=== PATIENT | male | born 1940 | race Two or more races ===

== ENCOUNTER 2019-01-17 18:51 | Inpatient (IN) | payer MEDICARE ==
[~2019-01-17] VITALS: Ht 162.6 cm; Wt 88.6 kg
[2019-01-17] MEDS ORDERED: DOCU-141 PO (19:01)
[2019-01-17] MEDS ORDERED: CYCL30DR EACHEYE (19:01)
[2019-01-17] MEDS ORDERED: BENA40TA67 PO (19:01)
[2019-01-17] MEDS ORDERED: ATOR20TA PO (19:01)
[2019-01-17] MEDS ORDERED: AMLO5TAB4 PO (19:01)
[2019-01-17] MEDS ORDERED: ACET-2154 PO (19:01)
[2019-01-17] MEDS ORDERED: CHOL100045 PO (19:01)
[2019-01-17] MEDS ORDERED: DEXT15DR6 EACHEYE (19:01)
[2019-01-17 19:28] LABS: BASOPHILS % (AUTO) 0.5 % (0.0-2.0); EOSINOPHILS # (AUTO) 0.1 K/uL (0.0-0.7); EOSINOPHILS % (AUTO) 0.7 % (0.0-7.0); HEMOGLOBIN 13.6 g/dL (12.5-16.3); LYMPHOCYTES # (AUTO) 1.5 K/uL (20.0-40.0); LYMPHOCYTES % (AUTO) 18.2 % (20.5-51.5); MEAN CORPUSCULAR HEMOGLOBIN 31.1 uug (23.8-33.4); MEAN CORPUSCULAR HGB CONC 34 g/dL (32.5-36.3); MEAN CORPUSCULAR VOLUME 91.6 fL (73.0-96.2); MONOCYTES # (AUTO) 0.6 K/uL (2.0-10.0); MONOCYTES % (AUTO) 7.1 % (0.0-11.0); NEUTROPHILS # (AUTO) 5.9 K/uL (1.8-8.9); NEUTROPHILS % (AUTO) 73.5 % (38.5-71.5); PLATELET COUNT (AUTO) 173 K/uL (152-348); RED BLOOD CELL COUNT(AUTO) 4.37 MIL/uL (4.06-5.63)
[2019-01-17 19:33] LABS: CARBON DIOXIDE 30 mmol/L (21-32); CHLORIDE 103 mmol/L (98-107); CREATININE 0.9 mg/dL (0.6-1.3); GLUCOSE 116 mg/dL (74-106); POTASSIUM 3.8 mmol/L (3.5-5.1); UREA NITROGEN, BLOOD 15 mg/dL (7-18)
[2019-01-17 19:38] LABS: ALANINE AMINOTRANSFERASE 14 U/L (16-63); ALKALINE PHOSPHATASE 88 U/L (50-136); ASPARTATE AMINOTRANSFERASE 11 U/L (15-37); BILIRUBIN,DIRECT 0.1 mg/dL (0.0-0.2); BILIRUBIN,TOTAL 0.3 mg/dL (0.2-1.0); TOTAL PROTEIN, SERUM 7.3 g/dL (6.4-8.2)
[2019-01-17 19:39] LABS: ACETAMINOPHEN < 2.0 ug/mL (10-30)
[2019-01-17 19:40] LABS: ETHANOL < 3 MG/DL (0-0)
--- NOTE | 2019-01-17 19:59 | NUR ---
ATTEMPTED TO CALL [facility] FOR [facility], NO ANSWER.
[2019-01-17 20:00] LABS: THYROID STIMULATING HORMONE 2.416 mIU/mL (0.358-3.740)
[2019-01-17 20:29] LABS: *BILIRUBIN,URIN NEGATIVE (NEGATIVE); *BLOOD, URINE NEGATIVE (NEGATIVE); *CLARITY,URINE CLEAR (CLEAR); *COLOR,URINE YELLOW (YELLOW); *KETONES,URINE NEGATIVE (NEGATIVE); *UROBILINOGEN,URINE 0.2 E.U./dl (NORMAL); LEUKOCYTE ESTERASE ,URINE NEGATIVE (NEGATIVE); NITRITE, URINE NEGATIVE (NEGATIVE); PH,URINE 5.5 (5.0-8.0); UGLUCOSE NEGATIVE (NEGATIVE)
[2019-01-17 20:40] LABS: *AMPHETAMINE, URINE NEGATIVE (NEGATIVE); *BARBITURATE, URINE NEGATIVE (NEGATIVE); *CANNABINOID, URINE NEGATIVE (NEGATIVE); *COCCAINE, URINE NEGATIVE (NEGATIVE); *OPIATE, URINE NEGATIVE (NEGATIVE); *PHENCYCLIDINE SCREEN,URINE NEGATIVE (NEGATIVE)
[2019-01-17] MEDS ORDERED: MAGNESIUM HYDROXIDE 30 ML LIQUID UDC PO PRN (20:45)
[2019-01-17] MEDS ORDERED: ACETAMINOPHEN 325 MG TABLET PO PRN (20:45)
[2019-01-17] MEDS ORDERED: ONDANSETRON 4 MG/2 ML VIAL IV PRN (20:45)
[2019-01-17] MEDS ORDERED: Z GUARD REMEDY PASTE 57 GM TUBE TOP PRN (20:45)
[2019-01-17] MEDS ORDERED: HYDROCODONE/APAP 5-325MG TABLET PO PRN (20:45)
--- NOTE | 2019-01-17 20:58 | NUR ---
Pt. admitted to M/S , under care of Dr. PRICE Belongs List completed. MRSA SWAB DONE.
[2019-01-17] MEDS ORDERED: BENAZEPRIL HCL 2.5 MG PO SCH (21:00)
[2019-01-17] MEDS: IV NS 1000 ML 1,000 ML IV PRN (21:56)
[2019-01-17] MEDS: ATORVASTATIN 20 MG TABLET PO SCH (22:00)
--- NOTE | 2019-01-17 22:00 | NUR ---
RECEIVED PT FROM ER VIA WHEELCHAIR. UNDER THE CARE OF DR. PRICE. DX: ACUTE ON CHRONIC ENCEPHALOPATHY. ADMISSION PROCESS AND CARE PLAN INITIATED. BELONGING LIST DONE. PT IN NO ACUTE DISTRESS. IV INTACT. FPC ASSESSMENT DONE. SAFETY AND COMFORT PROVIDED. WILL CONTINUE TO MONITOR.
[2019-01-17 22:24] VITALS: BP 155/76
[2019-01-18 04:42] VITALS: BP 150/72
[2019-01-18 07:17] LABS: CARBON DIOXIDE 25 mmol/L (21-32); CHLORIDE 107 mmol/L (98-107); CREATININE 0.8 mg/dL (0.6-1.3); GLUCOSE 98 mg/dL (74-106); MAGNESIUM 1.7 mg/dL (1.8-2.4); PHOSPHOROUS 3.2 mg/dL (2.5-4.9); POTASSIUM 3.8 mmol/L (3.5-5.1); UREA NITROGEN, BLOOD 12 mg/dL (7-18)
[2019-01-18 07:54] LABS: BASOPHILS % (AUTO) 0.3 % (0.0-2.0); EOSINOPHILS # (AUTO) 0.1 K/uL (0.0-0.7); EOSINOPHILS % (AUTO) 0.7 % (0.0-7.0); HEMATOCRIT 41.5 % (36.7-47.1); HEMOGLOBIN 13.8 g/dL (12.5-16.3); LYMPHOCYTES # (AUTO) 1.5 K/uL (20.0-40.0); LYMPHOCYTES % (AUTO) 21.3 % (20.5-51.5); MEAN CORPUSCULAR HEMOGLOBIN 30.6 uug (23.8-33.4); MEAN CORPUSCULAR HGB CONC 33 g/dL (32.5-36.3); MEAN CORPUSCULAR VOLUME 92.2 fL (73.0-96.2); MONOCYTES # (AUTO) 0.6 K/uL (2.0-10.0); MONOCYTES % (AUTO) 8.3 % (0.0-11.0); NEUTROPHILS # (AUTO) 4.9 K/uL (1.8-8.9); NEUTROPHILS % (AUTO) 69.4 % (38.5-71.5); PLATELET COUNT (AUTO) 180 K/uL (152-348); WHITE BLOOD COUNT (AUTO) 7.1 K/uL (3.6-10.2)
[2019-01-18 08:45] VITALS: BP 100/64
[2019-01-18] MEDS: DOCUSATE SODIUM 100 MG CAPSULE PO SCH ×2 (08:53→17:05)
[2019-01-18] MEDS: CHOLECALCIFEROL 1,000 UNIT TABLET PO SCH (08:53)
[2019-01-18] MEDS: AMLODIPINE 5 MG TABLET PO SCH (08:59)
--- NOTE | 2019-01-18 11:19 | NUR ---
PT SHOWS NO SIGNS OF ACUTE DISTRESS. IV INTACT. PRESCRIBED MEDICATION GIVEN AND PT TOLERATED IT WELL.SAFETY AND COMFORT PROVIDED. WILL ENDORSE ACCORDINGLY TO INCOMING NURSE FOR CONTINUITY OF CARE.
--- NOTE | 2019-01-18 11:30 | NUR ---
Received patient in Bed, awake and verbally responsive. No signs of distress noted. No SOB. No complain of Pain or discomfort. IVF infusing well no signs of distress noted. All needs attended and met. Will continue to monitor.
[2019-01-18 11:33] VITALS: BP 109/50
[2019-01-18] MEDS: MAGNESIUM SULFATE/D5W 100 ML IV SCH ×2 (14:55→15:51)
[2019-01-18 15:11] VITALS: BP 116/53
[2019-01-18] MEDS: POLYVINYL ALCOHOL OPHT DROPS 15 ML BOTTLE EACHEYE SCH (16:46)
--- NOTE | 2019-01-18 18:01 | NUR ---
Patient in Bed, awake and verbally responsive. No signs of distress noted. No SOB. No complain of Pain or discomfort. IVF infusing well no signs of distress noted. All needs attended and met. Manesium 2G given with Mg 1.7. All due medications given as ordered. kept Clean and comfortable. Will Endorse to Oncoming Nurse.
--- NOTE | 2019-01-18 19:30 | NUR ---
Received patient in bed awake, A&Ox2. No SOB noted. IV on R hand intact and patent w/ IVF infusing. No complaints of pain at this time. Cont on 1:1 sitter for safety. Safety measures observed. Call light in reach
[2019-01-18] MEDS: ATORVASTATIN 20 MG TABLET PO SCH (20:30)
[2019-01-18] MEDS: BENAZEPRIL HCL 5 MG TABLET PO SCH (20:34)
[2019-01-18] MEDS: IV NS 1000 ML 1,000 ML IV PRN (20:40)
[2019-01-19 04:00] VITALS: BP 135/62
[2019-01-19 06:32] LABS: CREATININE 0.8 mg/dL (0.6-1.3); MAGNESIUM 1.9 mg/dL (1.8-2.4); POTASSIUM 4.1 mmol/L (3.5-5.1)
--- NOTE | 2019-01-19 06:39 | NUR ---
Patient slept intermittently for 5 hours. No episode of agitation this shift. Cont on 1:1 sitter for safety. Will endorse accordingly
[2019-01-19 07:20] LABS: BASOPHILS % (AUTO) 0.2 % (0.0-2.0); EOSINOPHILS % (AUTO) 0.6 % (0.0-7.0); HEMATOCRIT 39.7 % (36.7-47.1); HEMOGLOBIN 13.5 g/dL (12.5-16.3); LYMPHOCYTES # (AUTO) 1.6 K/uL (20.0-40.0); LYMPHOCYTES % (AUTO) 19.6 % (20.5-51.5); MEAN CORPUSCULAR HEMOGLOBIN 31.1 uug (23.8-33.4); MEAN CORPUSCULAR HGB CONC 34 g/dL (32.5-36.3); MEAN CORPUSCULAR VOLUME 91.9 fL (73.0-96.2); MONOCYTES # (AUTO) 0.5 K/uL (2.0-10.0); MONOCYTES % (AUTO) 6.7 % (0.0-11.0); NEUTROPHILS % (AUTO) 72.9 % (38.5-71.5); PLATELET COUNT (AUTO) 167 K/uL (152-348); RED BLOOD CELL COUNT(AUTO) 4.32 MIL/uL (4.06-5.63); WHITE BLOOD COUNT (AUTO) 8.2 K/uL (3.6-10.2)
[2019-01-19] MEDS: DOCUSATE SODIUM 100 MG CAPSULE PO SCH ×2 (08:47→16:38)
[2019-01-19] MEDS: CHOLECALCIFEROL 1,000 UNIT TABLET PO SCH (08:47)
[2019-01-19] MEDS: POLYVINYL ALCOHOL OPHT DROPS 15 ML BOTTLE EACHEYE SCH ×3 (08:50→16:38)
[2019-01-19] MEDS: AMLODIPINE 5 MG TABLET PO SCH (08:52)
--- NOTE | 2019-01-19 11:04 | NUR ---
Discharge in for GPS, per Anne [facility] Sup patient is not medically cleared yet for transfer.
[2019-01-19 11:36] VITALS: BP 136/66
[2019-01-19] MEDS: IV NS 1000 ML 1,000 ML IV PRN ×2 (11:41→23:08)
[2019-01-19 15:00] VITALS: BP 134/69
--- NOTE | 2019-01-19 17:08 | NUR ---
Patient A&Ox2, no distress noted or complaints of pain. Continues on IV fluid hydration. Safety precautions in place, sitter at bedside for safety. End of shift chart check done, will endorse care to oncoming shift. Pending transfer to [facility]. saw patient today.
--- NOTE | 2019-01-19 19:30 | NUR ---
Received patient in bed asleep but arousable. No SOB noted. No complaints of pain at this time. IV on R hand intact and patent w/ IVF infusing. Cont on 1:1 sitter for safety. Safety measures observed. Call light in reach
[2019-01-19 20:00] VITALS: BP 137/74
[2019-01-19] MEDS: DIVALPROEX 250 MG TABLET.DR PO SCH (20:52)
[2019-01-19] MEDS: ATORVASTATIN 20 MG TABLET PO SCH (20:52)
[2019-01-19] MEDS: BENAZEPRIL HCL 5 MG TABLET PO SCH (20:52)
[2019-01-20 04:00] VITALS: BP 125/69
--- NOTE | 2019-01-20 06:21 | NUR ---
Patient slept for 6 hrs. No episode of agitation this shift. Patient noted compliant w/ med and nursing care. Cont on 1:1 sitter. All needs attended. For transfer to MHU this AM. Will endorse accordingly
[2019-01-20 07:47] VITALS: BP 127/76
[2019-01-20 08:08] VITALS: BP 127/76
[2019-01-20] MEDS: DIVALPROEX 250 MG TABLET.DR PO SCH (08:08)
[2019-01-20] MEDS: CHOLECALCIFEROL 1,000 UNIT TABLET PO SCH (08:08)
[2019-01-20] MEDS: DOCUSATE SODIUM 100 MG CAPSULE PO SCH (08:08)
[2019-01-20] MEDS: AMLODIPINE 5 MG TABLET PO SCH (08:08)
[2019-01-20] MEDS: POLYVINYL ALCOHOL OPHT DROPS 15 ML BOTTLE EACHEYE SCH (08:09)
--- NOTE | 2019-01-20 11:52 | NUR ---
Report Given to Jayce HAGAN, Notified Pt has status for DNR. Pt is in no acute distress> Valuables given to patient and signed.
== END 2019-01-20 11:45 | DRG 103 ==
LOC: ER 18:54 → MEDSURG3 21:12
PROVIDERS: ADMIT Internal Medicine; ATTEND Internal Medicine
DX: F07.81 Postconcussional syndrome (principal); F03.91 Unspecified dementia, unspecified severity, with behavioral disturbance; F39 Unspecified mood [affective] disorder; Z91.81 History of falling; Z91.83 Wandering in diseases classified elsewhere; Z79.899 Other long term (current) drug therapy; R22.0 Localized swelling, mass and lump, head; I25.10 Atherosclerotic heart disease of native coronary artery without angina pectoris; E78.5 Hyperlipidemia, unspecified; G31.9 Degenerative disease of nervous system, unspecified; I10 Essential (primary) hypertension; Z86.73 Personal history of transient ischemic attack (TIA), and cerebral infarction without residual deficits; F41.9 Anxiety disorder, unspecified; F10.10 Alcohol abuse, uncomplicated; Y90.0 Blood alcohol level of less than 20 mg/100 ml
CPT/HCPCS: 36415; 70030-TC; 70450; 71045; 80307; 83735; 84100; 84443; 85025; 85730; 87086; 93005; A4663; G0378; G0480; G0480-TC; J3475; J3490; J7030

== ENCOUNTER 2019-01-20 12:24 | Inpatient (IN) | payer MEDICARE ==
[~2019-01-20] VITALS: Ht 162.6 cm; Wt 87.5 kg
[~2019-01-20 12:24] MED LIST: ACET-2154 PO; AMLO5TAB4 PO; ATOR20TA PO; BENA40TA67 PO; CHOL100045 PO; CYCL30DR EACHEYE; DEXT15DR6 EACHEYE; DOCU-141 PO
--- NOTE | 2019-01-20 12:45 | NUR ---
patient from [facility].patient had been increase in nomadic behavior with frequent elopement and going to local store buying ETOH and coming back dunk. he has been wandered in to the street facility unable to manage him.Per [address] due to eloping form facility, wandering in the streets, andcoming back intoxicated from ETOH. Dr. Pereira who reports that patient has been altered, and decompensating over recent weeks. 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
[2019-01-20] MEDS ORDERED: MAGNESIUM HYDROXIDE 30 ML LIQUID UDC PO PRN (13:00)
[2019-01-20] MEDS ORDERED: MAG HYDROX/AL HYDROX/SIMETH 30 ML LIQUID UDC PO PRN (13:00)
[2019-01-20] MEDS ORDERED: ACETAMINOPHEN 325 MG TABLET PO PRN (13:00)
[2019-01-20] MEDS ORDERED: TEMAZEPAM 7.5 MG CAPSULE PO PRN (13:00)
[2019-01-20 15:30] VITALS: BP 116/64
[2019-01-20] MEDS: DIVALPROEX 250 MG TABLET.DR PO SCH (20:23)
[2019-01-20 20:43] VITALS: BP 122/71
[2019-01-21] MEDS: LORAZEPAM 0.5 MG TABLET PO PRN (00:03)
[2019-01-21 07:30] VITALS: BP 139/75
[2019-01-21] MEDS: DIVALPROEX 250 MG TABLET.DR PO SCH ×2 (08:01→20:14)
[2019-01-21 15:18] VITALS: BP 117/68
--- NOTE | 2019-01-21 16:29 | NUR ---
Initial Discharge Note: Patient is a 78 year old male who currently resides at [facility] [[address], [place] [address]; ]. Per Guillermina, Admissions at facility, patient will be able to return to facility upon discharge. Bro is not on bed hold but facility will be welcoming patient back. Per patient, he would like to be discharged back to facility as soon as possible. turn out worker will continue to meet with patient, and collaborate with patient and MD on a safe and proper discharge plan.
[2019-01-21 20:00] VITALS: BP 151/59
--- NOTE | 2019-01-21 20:48 | NUR ---
Patient was is compliant this evening. Will closely monitor.
[2019-01-22 07:30] VITALS: BP 168/74
[2019-01-22] MEDS: DIVALPROEX 250 MG TABLET.DR PO SCH ×2 (08:32→20:23)
[2019-01-22] MEDS: LORAZEPAM 0.5 MG TABLET PO PRN (08:33)
--- NOTE | 2019-01-22 11:36 | NUR ---
FIREARMS REPORT: Child Development Assistant completed and submitted a [employer] firearms report for [address] [employer] certification. A copy of report has been placed in patient chart.
[2019-01-22 15:05] VITALS: BP 117/58
[2019-01-22 20:17] VITALS: BP 137/75
[2019-01-22] MEDS: BENAZEPRIL HCL 5 MG TABLET PO SCH (20:23)
[2019-01-22] MEDS: ATORVASTATIN 20 MG TABLET PO SCH (20:24)
[2019-01-22] MEDS ORDERED: BENAZEPRIL HCL 2.5 MG PO SCH (21:00)
[2019-01-23 07:30] VITALS: BP 134/79
[2019-01-23] MEDS: CHOLECALCIFEROL 1,000 UNIT TABLET PO SCH (09:19)
[2019-01-23] MEDS: AMLODIPINE 5 MG TABLET PO SCH (09:20)
[2019-01-23] MEDS: DIVALPROEX 250 MG TABLET.DR PO SCH ×2 (09:20→20:51)
[2019-01-23] MEDS: DOCUSATE SODIUM 100 MG CAPSULE PO SCH ×2 (09:20→17:51)
--- NOTE | 2019-01-23 15:00 | NUR ---
Discharge Planning: Per core analyst request, Dr. Shaw, referral packet was faxed to [facility] [[address], [place] [address]; ] ATTN KELLY. Business Planner confirmed fax receipt with ADA.
[2019-01-23 15:54] VITALS: BP 114/66
[2019-01-23 20:12] VITALS: BP 109/49
[2019-01-23] MEDS: ATORVASTATIN 20 MG TABLET PO SCH (20:51)
[2019-01-23] MEDS: BENAZEPRIL HCL 5 MG TABLET PO SCH (20:52)
--- NOTE | 2019-01-24 06:14 | NUR ---
PT SLEPT 9.15 HOURS. PT IN NO ACUTE DISTRESS. PRESCRIBED MEDICATION GIVEN AND PT TOLERATED IT WELL. PT COMPLIANT WITH CARE. CAN MAKE HIS NEEDS KNOWN. PLEASANT WHEN APPROACHED. SAFETY AND COMFORT PROVIDED. ALL NEEDS ARE MET . WILL ENDORSE ACCORDINGLY TO INCOMING NURSE FOR CONTINUITY OF CARE.
[2019-01-24] MEDS: CHOLECALCIFEROL 1,000 UNIT TABLET PO SCH (08:30)
[2019-01-24] MEDS: AMLODIPINE 5 MG TABLET PO SCH (08:30)
[2019-01-24] MEDS: DIVALPROEX 250 MG TABLET.DR PO SCH ×2 (08:31→21:18)
[2019-01-24] MEDS: DOCUSATE SODIUM 100 MG CAPSULE PO SCH ×2 (08:31→17:00)
[2019-01-24 10:47] VITALS: BP 139/66
[2019-01-24 16:45] VITALS: BP 128/70
--- NOTE | 2019-01-24 20:20 | NUR ---
Patient received into care sleeping in bed, resting comfortably. Patient has no signs/symptoms of acute distress or discomfort noted or observed. All safety and fall precaution measures are in place. Will continue to monitor throughout shift.
[2019-01-24 20:28] VITALS: BP 122/68
[2019-01-24] MEDS: BENAZEPRIL HCL 5 MG TABLET PO SCH (21:17)
[2019-01-24] MEDS: ATORVASTATIN 20 MG TABLET PO SCH (21:18)
--- NOTE | 2019-01-25 07:04 | NUR ---
Patient slept 7.45 hr with no complaints of pain or discomfort all night. Patient was compliant with all aspects of care, including medication regimen. All nursing needs were addressed promptly. Safety and fall precaution measures remain in place.
[2019-01-25 07:57] VITALS: BP 129/52
--- NOTE | 2019-01-25 09:00 | NUR ---
Calm, compliant with taking medication
[2019-01-25] MEDS: DOCUSATE SODIUM 100 MG CAPSULE PO SCH ×2 (09:01→16:41)
[2019-01-25] MEDS: DIVALPROEX 250 MG TABLET.DR PO SCH ×3 (09:02→20:10)
[2019-01-25] MEDS: AMLODIPINE 5 MG TABLET PO SCH (09:02)
[2019-01-25] MEDS: CHOLECALCIFEROL 1,000 UNIT TABLET PO SCH (09:02)
--- NOTE | 2019-01-25 11:00 | NUR ---
Sleeping most of the time
--- NOTE | 2019-01-25 16:00 | NUR ---
At the activity room, pleasant,calm and compliant with taking medication
[2019-01-25 16:08] VITALS: BP 134/63
[2019-01-25] MEDS: ATORVASTATIN 20 MG TABLET PO SCH (20:10)
[2019-01-25] MEDS: BENAZEPRIL HCL 5 MG TABLET PO SCH (20:11)
[2019-01-25 21:01] VITALS: BP 123/74
--- NOTE | 2019-01-26 05:58 | NUR ---
Patient slept a total of 6.30 hours. Patient has been pleasant, calm and compliant with medications. Attended all needs. Ensured safety and comfort. No other untoward events noted.
[2019-01-26 07:30] VITALS: BP 134/68
[2019-01-26] MEDS: CHOLECALCIFEROL 1,000 UNIT TABLET PO SCH (08:14)
[2019-01-26] MEDS: DIVALPROEX 250 MG TABLET.DR PO SCH ×3 (08:14→20:35)
[2019-01-26] MEDS: DOCUSATE SODIUM 100 MG CAPSULE PO SCH ×2 (08:15→16:25)
[2019-01-26] MEDS: AMLODIPINE 5 MG TABLET PO SCH (08:15)
--- NOTE | 2019-01-26 10:00 | NUR ---
AWAKE ALERT AND VERBALLY RESPONSIVE FORGETFUL AT TIME ABLE TO MAKE SIMPLE NEEDS KNOWN COMPLIANT WITH MEDICATIONS AND CARE.NOT IN DISTRESS AT THIS TIME.
[2019-01-26 15:16] VITALS: BP 127/60
[2019-01-26] MEDS: ATORVASTATIN 20 MG TABLET PO SCH (20:34)
[2019-01-26 20:35] VITALS: BP 121/63
[2019-01-26] MEDS: BENAZEPRIL HCL 5 MG TABLET PO SCH (20:35)
[2019-01-26 21:00] VITALS: BP 111/64
[2019-01-27 07:30] VITALS: BP 123/54
[2019-01-27] MEDS: CHOLECALCIFEROL 1,000 UNIT TABLET PO SCH (08:26)
[2019-01-27] MEDS: DOCUSATE SODIUM 100 MG CAPSULE PO SCH ×2 (08:26→16:18)
[2019-01-27] MEDS: DIVALPROEX 250 MG TABLET.DR PO SCH ×3 (08:26→20:55)
[2019-01-27] MEDS: AMLODIPINE 5 MG TABLET PO SCH (08:27)
[2019-01-27 16:11] VITALS: BP 121/67
--- NOTE | 2019-01-27 19:00 | NUR ---
PATIENT IN BED, ALERT BUT FORGETFUL, PATIENT COOPERATIVE WITH MEDICATION AND CARE, CONT TO MONITOR.
[2019-01-27] MEDS: BENAZEPRIL HCL 5 MG TABLET PO SCH (20:56)
[2019-01-27 21:00] VITALS: BP 111/64
[2019-01-27] MEDS ORDERED: ATORVASTATIN 20 MG TABLET ONE (21:42)
[2019-01-27] MEDS: ATORVASTATIN 20 MG TABLET PO SCH (23:12)
[2019-01-28 07:30] VITALS: BP 109/59
[2019-01-28] MEDS: DOCUSATE SODIUM 100 MG CAPSULE PO SCH ×2 (08:29→16:09)
[2019-01-28] MEDS: DIVALPROEX 250 MG TABLET.DR PO SCH ×3 (08:29→20:24)
[2019-01-28] MEDS: CHOLECALCIFEROL 1,000 UNIT TABLET PO SCH (08:30)
[2019-01-28] MEDS: AMLODIPINE 5 MG TABLET PO SCH (08:30)
[2019-01-28 15:22] VITALS: BP 136/72
[2019-01-28 20:00] VITALS: BP 130/64
[2019-01-28] MEDS: BENAZEPRIL HCL 5 MG TABLET PO SCH (20:24)
[2019-01-28] MEDS: ATORVASTATIN 20 MG TABLET PO SCH (20:24)
[2019-01-29 07:30] VITALS: BP 129/75
[2019-01-29] MEDS: DOCUSATE SODIUM 100 MG CAPSULE PO SCH (08:37)
[2019-01-29] MEDS: DIVALPROEX 250 MG TABLET.DR PO SCH (08:37)
[2019-01-29] MEDS: CHOLECALCIFEROL 1,000 UNIT TABLET PO SCH (08:37)
[2019-01-29 08:38] VITALS: BP 129/73
[2019-01-29] MEDS: AMLODIPINE 5 MG TABLET PO SCH (08:38)
--- NOTE | 2019-01-29 09:52 | NUR ---
Discharge Note Patient will be discharged to [facility] [[address] [place] [address]; [phone]]. Spoke with Hetaher [Director Content Marketing] at the facility who states they are ready to accept the patient today and will be providing transportation for the patient at 11:30AM. Patient is aware and agreeable with discharge plans. Patient does not have any family contacts at this time. Patient is alert and oriented times 3, is unable to plan for self-care, but is willing to accept care at the facility. Patient denies suicidal or homicidal ideation. Patient will follow-up at the facility with an in-house doctor by [facility] [ ] tier and detonator 24/ hours. The facility provides the patient with a 24/hour caregiver who will be providing meals three times a day, laundry services, transportation services to and from doctors appointments, shower assistance, and medication management. Patient is also referred for home health services, and is provided with 24/hour pharmacy who will be delivering medications to the facility [provided by the facility].
--- NOTE | 2019-01-29 12:55 | NUR ---
Patient discharged to [facility] [[address] [place] [address]; ] in stable condition with private transport brain picker by staff around 1255pm. Medication list and instruction given to the staff and patient. Verbalize understanding. Patient does not have any family contacts at this time. Patient is alert and oriented times 3, is unable to plan for self-care, but is willing to accept care at the facility. Patient denies suicidal or homicidal ideation. Patient is also referred for home health services. Patient will FF UP with primary physician and continuity of care to board [facility].
== END 2019-01-29 12:55 | DRG 885 ==
LOC: GPS 12:24
PROVIDERS: ADMIT Psychiatry & Neurology Psychiatry; ATTEND Internal Medicine
DX: F39 Unspecified mood [affective] disorder (principal); G93.40 Encephalopathy, unspecified; E78.5 Hyperlipidemia, unspecified; Z86.73 Personal history of transient ischemic attack (TIA), and cerebral infarction without residual deficits; F10.10 Alcohol abuse, uncomplicated; Z66 Do not resuscitate; I25.10 Atherosclerotic heart disease of native coronary artery without angina pectoris; I10 Essential (primary) hypertension; Z79.899 Other long term (current) drug therapy; F41.8 Other specified anxiety disorders; F03.90 Unspecified dementia, unspecified severity, without behavioral disturbance, psychotic disturbance, mood disturbance, and anxiety
CPT/HCPCS: J3490